=== PATIENT | female | born 1970 | race African-American/Black ===

== ENCOUNTER → 2016-11-08 | Outpatient (CLI) | payer BC ==
--- NOTE | 2016-11-08 17:12 | RADIOLOGY REPORT (SQ) ---
EXAM DESCRIPTION: MRI LUMBAR SPINE WITHOUT COMPLETED DATE/TIME: 11/08/2016 4:00 pm REASON FOR STUDY: LOW BACK PAIN M54.5 LOW BACK PAIN COMPARISON: None. TECHNIQUE: Sagittal and Axial imaging includes T1, T2, STIR and gradient echo sequences. Coronal T2/ HASTE imaging. LIMITATIONS: None. FINDINGS: VISUALIZED UPPER ABDOMEN: Limited evaluation. No acute or suspicious findings suggested. SEGMENTATION: No transitional anatomy. The lowest well-developed disc space is labeled L5-S1. ALIGNMENT: Minimal anterolisthesis of L4 over L5 VERTEBRAE: Intact. BONE MARROW: Fatty reactive vertebral body endplate changes at L5-S1 DISC SIGNAL: Diffuse decreased T2 weighted intervertebral disc signal throughout the lumbar spine, wi th disc space loss of height at T12-L1, L1-2, L4-5, and L5-S1. POSTERIOR ELEMENTS: Generally intact. No pars defect evident. HARDWARE: None in the spine. CORD AND CONUS: Normal in size and signal intensity. Conus at the L1 level. SOFT TISSUES: No aortic aneurysm seen. No bulky retroperitoneal adenopathy or mass. No paraspinal mas s or fluid. T11-12: Mild bilateral facet hypertrophy. No central or foraminal encroachment. T12-L1: Mild bilateral facet hypertrophy. No central or foraminal encroachment L1-L2: Mild diffuse posterior disc bulging, mild bilateral facet and ligament hypertrophy. No centra l or foraminal encroachment. L2-L3: Minimal posterior disc bulging, mild bilateral facet and ligament hypertrophy. No significant central or foraminal encroachment. Send L3-L4: Mild diffuse posterior disc bulging, moderate bilateral facet and ligament hypertrophy. No ce ntral or foraminal encroachment. L4-L5: Mild diffuse posterior disc bulging is present with moderate bilateral facet and ligament hype rtrophy. Borderline central canal narrowing. Very mild inferior right foraminal narrowing without e xiting L4 nerve root impingement. No significant left foraminal stenosis. L5-S1: Broad diffuse posterior disc bulge and bony spurring and moderate bilateral facet and ligament hypertrophy. No central stenosis. Moderate right, mild left foraminal narrowing without definite e xiting L5 nerve root impingement. SACRUM: Visualized upper sacrum intact. OTHER: No other significant findings. IMPRESSION: Mild diffuse degenerative changes as above TECHNICAL DOCUMENTATION: JOB ID: [id number] [employer]- All Rights Reserved
== END ==
LOC: RAD 15:09
PROVIDERS: ATTEND Family Medicine
DX: M54.5 Low back pain (principal)
CPT/HCPCS: 72148

== ENCOUNTER 2018-04-08 11:56 | Emergency (ER) | payer BC ==
[2018-04-08] MEDS ORDERED: NORMAL SALINE 1000 ML 1,000 ML IV ONE (12:36)
[2018-04-08] MEDS ORDERED: ONDANSETRON HCL INJ/PF 4 MG/2 ML SDV IV ONE (12:37)
--- NOTE | 2018-04-08 12:38 | ER Document Report ---
ED Medical Screen (RME) - General Chief Complaint: Abdominal Pain Stated Complaint: ABDOMINAL PAIN Time Seen by Provider: 04/08/18 12:28 TRAVEL OUTSIDE OF THE [place] IN LAST 30 DAYS: No - Related Data Allergies/Adverse Reactions: No Known Allergies Allergy (Verified 04/08/18 11:56) Past Medical History - Social History Frequency of alcohol use: Occasional Drug Abuse: None Renal/ Medical History: Denies: Hx Peritoneal Dialysis Musculoskeltal Medical History: Reports Hx Arthritis, Reports Hx Musculoskeletal Deformity, Reports Hx Musculoskeletal Trauma Past Surgical History: Reports: Hx Abdominal Surgery - LAP's, gastric bypass, Hx Appendectomy - gastric bypass, Hx Gastric Bypass Surgery, Hx Gynecologic Surgery, Hx Hysterectomy - 2002, Hx Orthopedic Surgery - bone spurs removed from shoulder - Immunizations Hx Diphtheria, Pertussis, Tetanus Vaccination: Yes Physical Exam - Vital signs Vitals: Temp Pulse Resp BP Pulse Ox 98.6 F 65 18 120/74 98 04/08/18 12:00 04/08/18 12:00 04/08/18 12:00 04/08/18 12:00 04/08/18 12:00 Course - Re-evaluation Re-evalutation: 04/08/18 12:37 47-year-old 13 years status post gastric bypass surgery in [facility] who presents for evaluation of difficulty swallowing times 7 days with recurrent episodes of spitting up. Was seen in urgent care seen and evaluated and sent to the emergency room for "concern of possible bowel obstruction". Had a bowel movement 2 days ago. Has never had a bowel obstruction in the past. I have seen and evaluated this patient in rapid medical screening exam fashion. I have initiated a evaluation and workup, this patient will require further investigation evaluation and disposition determination by secondary provider. - Vital Signs Vital signs: Temp Pulse Resp BP Pulse Ox 98.6 F 65 18 120/74 98 04/08/18 12:00 04/08/18 12:00 04/08/18 12:00 04/08/18 12:00 04/08/18 12:00 Doctor's Discharge - Discharge Referrals: DESTINY KONG DO [Primary Care Provider] - Follow up as needed
[2018-04-08 13:10] LABS: ABSOLUTE EOSINOPHILS # (AUTO) 0.2 10^3/uL (0.0-0.6); ABSOLUTE LYMPHOCYTES (AUTO) 1.8 10^3/uL (0.5-4.7); ABSOLUTE MONOCYTES (AUTO) 0.6 10^3/uL (0.1-1.4); ABSOLUTE NEUT (AUTO) 5.1 10^3/uL (1.7-8.2); BASOPHILS % (AUTO) 0.5 % (0-2); HEMATOCRIT 33.7 % (36.0-47.0); HEMOGLOBIN 11.7 g/dL (12.0-15.5); LYMPHOCYTES % (AUTO) 23.4 % (13-45); MEAN CORPUSCULAR HEMOGLOBIN 39.2 pg (27.0-33.4); MEAN CORPUSCULAR HGB CONC 34.8 g/dL (32.0-36.0); MONOCYTES % (AUTO) 7.6 % (3-13); PLATELET COUNT 208 10^3/uL (150-450); RED BLOOD COUNT 2.99 10^6/uL (3.72-5.28); RED CELL DISTRIBUTION WIDTH 17.4 % (11.5-14.0); SEGMENTED NEUTROPHILS % (AUTO) 66.5 % (42-78); TOTAL CELLS COUNTED % (AUTO) 100 %; WHITE BLOOD COUNT 7.7 10^3/uL (4.0-10.5)
[2018-04-08 13:26] LABS: ANISOCYTOSIS 1+; OVALOCYTES SLIGHT; PLATELET COMMENT ADEQUATE; POIKILOCYTOSIS 1+; TEAR DROP CELLS SLIGHT
[2018-04-08 13:27] LABS: MEAN CORPUSCULAR VOLUME 113 fl (80-97)
[2018-04-08 13:31] LABS: ALANINE AMINOTRANSFERASE 14 U/L (9-52); ALBUMIN 4.4 g/dL (3.5-5.0); ALKALINE PHOSPHATASE 89 U/L (38-126); ANION GAP 8 (5-19); ASPARTATE AMINO TRANSFERASE 18 U/L (14-36); BILIRUBIN,DIRECT 0.2 mg/dL (0.0-0.4); BILIRUBIN,TOTAL 1.1 mg/dL (0.2-1.3); BLOOD UREA NITROGEN 10 mg/dL (7-20); CALCIUM 9.5 mg/dL (8.4-10.2); CARBON DIOXIDE 28 mmol/L (22-30); CHLORIDE 108 mmol/L (98-107); GLUCOSE 90 mg/dL (75-110); LIPASE 68.7 U/L (23-300); POTASSIUM 4.7 mmol/L (3.6-5.0); SODIUM 143.9 mmol/L (137-145); TOTAL PROTEIN 7.4 g/dL (6.3-8.2)
--- NOTE | 2018-04-08 13:49 | RADIOLOGY REPORT (SQ) ---
EXAM DESCRIPTION: CHEST 2 VIEWS COMPLETED DATE/TIME: 04/08/2018 1:38 pm REASON FOR STUDY: chest tightness, possible aspiration COMPARISON: None. EXAM PARAMETERS: NUMBER OF VIEWS: two views TECHNIQUE: Digital Frontal and Lateral radiographic views of the chest acquired. RADIATION DOSE: NA LIMITATIONS: none FINDINGS: LUNGS AND PLEURA: No acute infiltrates or effusions. MEDIASTINUM AND HILAR STRUCTURES: No masses or contour abnormalities. HEART AND VASCULAR STRUCTURES: Normal heart and pulmonary vasculature. BONES: No acute findings. HARDWARE: None in the chest. OTHER: No other significant finding. IMPRESSION: NO ACUTE DISEASE. TECHNICAL DOCUMENTATION: JOB ID: [id number] [employer]- All Rights Reserved Reading location - IP/workstation name: [email or web address]
[2018-04-08] MEDS ORDERED: MAG HYDROX/AL HYDROX/SIMETH SUSP 30 ML UDCUP PO ONE (14:54)
[2018-04-08] MEDS ORDERED: LIDOCAINE 2% VISCOUS SOLN 20 ML UDCUP PO ONE (14:54)
--- NOTE | 2018-04-08 15:01 | ER Document Report ---
ED General - General Chief Complaint: Difficulty Swallowing Stated Complaint: ABDOMINAL PAIN Time Seen by Provider: 04/08/18 12:28 Notes: Patient is a 47-year-old female presents the emergency department complaining of "pain when swallowing.". Patient states for the last 7 days she has had cough and congestion, denying fever. Patient states in the last couple of days she thought that she just had excess mucus because when she swallows she feels as though it gets "stuck in my throat." Patient also states that she feels as though when she swallows and coughs "something is moving" at the distal aspect of her esophagus. Patient states it is an intermittent pressure and increases when she coughs or tries to swallow. Patient denies any choking episodes while coughing or eating, or drinking. Patient states she cannot pinpoint an exact time as to when this discomfort started. Patient states her last bowel movement was yesterday and was "normal" in nature. Past medical history: None Medications: None Allergies: None Surgical history: Gastric bypass, hysterectomy, cholecystectomy, appendectomy TRAVEL OUTSIDE OF THE [place] IN LAST 30 DAYS: No - Related Data Allergies/Adverse Reactions: No Known Allergies Allergy (Verified 04/08/18 11:56) Past Medical History - General Information source: Patient - Social History Smoking Status: Never Smoker Frequency of alcohol use: Occasional Drug Abuse: None Family History: Arthritis, DM, Hypertension, Malignancy Patient has suicidal ideation: No Patient has homicidal ideation: No Renal/ Medical History: Denies: Hx Peritoneal Dialysis Musculoskeletal Medical History: Reports Hx Arthritis, Reports Hx Musculoskeletal Deformity, Reports Hx Musculoskeletal Trauma Past Surgical History: Reports: Hx Abdominal Surgery - LAP's, gastric bypass, Hx Appendectomy - gastric bypass, Hx Gastric Bypass Surgery, Hx Gynecologic Surgery, Hx Hysterectomy - 2002, Hx Orthopedic Surgery - bone spurs removed from shoulder - Immunizations Hx Diphtheria, Pertussis, Tetanus Vaccination: Yes Review of Systems - Review of Systems Constitutional: See HPI EENT: See HPI Cardiovascular: No symptoms reported Respiratory: See HPI Gastrointestinal: See HPI Genitourinary: No symptoms reported Female Genitourinary: No symptoms reported Musculoskeletal: No symptoms reported Skin: No symptoms reported Hematologic/Lymphatic: No symptoms reported Neurological/Psychological: No symptoms reported Physical Exam - Vital signs Vitals: Temp Pulse Resp BP Pulse Ox 98.6 F 65 18 120/74 98 04/08/18 12:04/08/18 12:00 04/08/18 12:04/08/18 12:04/08/18 12:00 - Notes Notes: GENERAL: Alert, interacts well. No acute distress. Patient able to swallow her own secretions, not drooling, no change in her voice Per patient. HEAD: Normocephalic, atraumatic. EYES: Pupils equal, round, and reactive to light. Extraocular movements intact. ENT: Oral mucosa moist, tongue midline. Nares patent, no nasal septal hematoma, TM's intact, nonerythematous, nonbulging. Pharynx within normal limits, tonsils +1 bilaterally no exudate or palatal petechiae noted NECK: Full range of motion. Supple. Trachea midline. No obvious thyromegaly noted LUNGS: Clear to auscultation bilaterally, no wheezes, rales, or rhonchi. No respiratory distress. HEART: Regular rate and rhythm. No murmur ABDOMEN: Soft, non-tender. Non-distended. Bowel sounds present in all 4 qu adrants. EXTREMITIES: Moves all 4 extremities spontaneously. No edema, normal radial and dorsalis pedis pulses bilaterally. No cyanosis. BACK: no cervical, thoracic, lumbar midline tenderness. No saddle anesthesia, normal distal neurovascular exam. NEUROLOGICAL: Alert and oriented x3. Normal speech. cranial nerves II through XII grossly intact PSYCH: Normal affect, normal mood. SKIN: Warm, dry, normal turgor. No rashes or lesions noted. Course - Re-evaluation Re-evalutation: 04/08/18 15:28 Please do not have a in-house radiologist to perform a barium swallow on this patient. Discussed this case at length with Dr. Andrews who states because the patient is able to handle her own secretions and is in no obvious distress the patient can follow-up outpatient. Patient was given a GI cocktail which the patient states helped "a little bit." Patient continues to be able to swallow her secretions and was able to swallow fluids after the GI cocktail with no issues. Discussed following up with gastroenterology or surgery, phone numbers will be provided. Vitals are stable for discharge. - Vital Signs Vital signs: Temp Pulse Resp BP Pulse Ox 98.6 F 65 18 120/74 98 04/08/18 12:00 04/08/18 12:00 04/08/18 12:00 04/08/18 12:00 04/08/18 12:00 - Laboratory Result Diagrams: 04/08/18 12:53 04/08/18 12:53 Laboratory results interpreted by me: 04/08/18 04/08/18 12:53 12:53 RBC 2.99 L Hgb 11.7 L Hct 33.7 L MCV 113 H MCH 39.2 H RDW 17.4 H Chloride 108 H Discharge - Discharge Clinical Impression: Sensation of foreign body in esophagus Condition: Stable Disposition: HOME, SELF-CARE Additional Instructions: As we discussed you have been seen and treated in the emergency department for a foreign body since patient in your throat. You should continue to take [id number] cold medications to help with the excess production of mucus. Please make sure you follow-up with surgery or gastroenterology, phone numbers will be provided in this packet. Please return to the emergency room should you have any increased trouble swallowing, or breathing. Please return to the emergency room for any other concerning symptoms. Referrals: PRIMO VILLATORO MD [ACTIVE STAFF] - Follow up as needed JUAN HARVEY MD [ACTIVE STAFF] - Follow up as needed
[2018-04-08 16:35] VITALS: BP 118/72
[2018-04-09 15:50] LABS: PATH REVIEW PATHOLOGIST REVIEWED
== END 2018-04-08 16:30 | disposition home or self-care (01) ==
LOC: ER 11:56
DX: R19.8 Other specified symptoms and signs involving the digestive system and abdomen (principal); R05 Cough; Z98.84 Bariatric surgery status
CPT/HCPCS: 99284; 96361; 96374; 36415; 83690; 85025; 80053; 71046; J3490; J2405; J7030

== ENCOUNTER → 2018-04-12 | Outpatient (CLI) | payer BC ==
--- NOTE | 2018-04-12 11:48 | RADIOLOGY REPORT (SQ) ---
EXAM DESCRIPTION: BARIUM SWALLOW ESOPHAGUS COMPLETED DATE/TIME: 04/12/2018 10:23 am REASON FOR STUDY: DYSPHAGIA R13.10 DYSPHAGIA, UNSPECIFIED COMPARISON: None. TECHNIQUE: Under fluoroscopic guidance, patient ingested effervescent granules followed by thick and thin barium. Fluoroscopic spot images and routine radiographic images acquired and stored on PACS. 12 MM BARIUM TABLET GIVEN: No LIMITATIONS: None. FLUOROSCOPY TIME: FLUORO TIME: 1.5 minutes 8 images saved to PACS. FINDINGS: NEUROMUSCULAR COORDINATION OF SWALLOW: Normal. No aspiration. ESOPHAGEAL MOTILITY: Normal peristalsis. No esophageal spasm. ESOPHAGEAL MUCOSA: Normal mucosa without masses or ulceration. GASTRO-ESOPHAGEAL JUNCTION: No hiatal hernia or reflux. NON-GI TRACT STRUCTURES: No significant finding. OTHER: There are surgical changes consistent with gastric bypass. No abnormalities are seen in this area. No hang up of barium is identified. IMPRESSION: SURGICAL CHANGES CONSISTENT WITH GASTRIC BYPASS. NORMAL ESOPHAGUS AND GASTRIC POUCH, NO RMAL GASTRIC EMPTYING. RECOMMENDATION: NONE COMMENT: Report called to Dr. Christiansen's office at time of dictation. Quality ID [id number]: Final reports for procedures using fluoroscopy that document radiation exposure cortney everett, or exposure time and number of fluorographic images (if radiation exposure indices are not avail able) TECHNICAL DOCUMENTATION: JOB ID: [id number] [employer]- All Rights Reserved Reading location - IP/workstation name: [email or web address] [id number]
== END ==
LOC: RAD 09:34
PROVIDERS: ATTEND Surgery
DX: R13.10 Dysphagia, unspecified (principal); Z98.84 Bariatric surgery status
CPT/HCPCS: 74220